=== PATIENT | male | born 1980 | race Caucasian/White ===

== ENCOUNTER 2025-01-04 16:34 | Emergency (ER) | payer MEDICAID, SELFPAY ==
[2025-01-04 16:43] VITALS: BP 163/104; BP 173/104; PULSE 107; RESP 18; TEMP 37.2; O2SAT 100
[2025-01-04 18:27] LABS: Basophils # (Auto) 0.0 Thou/mm3 (0.0-0.2); Basophils % (Auto) 0 % (0-2.5); Eosinophils # (Auto) 0.0 Thou/mm3 (0.0-0.5); Eosinophils % (Auto) 0 % (0-10); Hematocrit 46.0 % (41.0-53.0); Hemoglobin 16.0 g/dL (13.5-16.0); Immature Granulocytes Auto 0.04 Thou/mm3 (0.00-0.00); Lymphocytes # (Auto) 1.3 Thou/mm3 (1.0-4.8); Lymphocytes % (Auto) 10 % (10-50); Mean Corpuscular HGB Conc 34.8 g/dl (31.0-37.0); Mean Corpuscular Hemoglobin 29.6 pg (25.0-35.0); Mean Corpuscular Volume 85 fL (80-100); Monocytes # (Auto) 0.6 Thou/mm3 (0.0-0.8); Monocytes % (Auto) 5 % (0-12); Neutrophils # (Auto) 10.3 Thou/mm3 (1.8-7.7); Neutrophils % (Auto) 84 % (37-80); Nucleated Red Blood Cell # 0.00 Thou/mm3 (0.00-0.00); Nucleated Red Blood Cell % 0 /100 WBC (0); Platelet Count 328 Thou/mm3 (140-440); RDW Standard Deviation 38.3 fL (35.1-43.9); Red Blood Count 5.41 Miln/mm3 (4.50-5.90); White Blood Count 12.3 Thou/mm3 (3.8-10.6)
[2025-01-04 18:48] LABS: Alanine Aminotransferase 12 U/L (10-49); Albumin, Serum 5.2 gm/dL (3.5-5.0); Albumin/Globulin Ratio 1.6 (1.2-2.2); Alkaline Phosphatase 92 U/L (46-116); Anion Gap 14 (7-16); Aspartate Amino Transferase 19 U/L (0-34); BUN/Creatinine Ratio 9 Ratio (12-20); Bilirubin,Total 1.2 mg/dL (0.3-1.2); Blood Urea Nitrogen 8 mg/dL (9-23); Calcium 10.8 mg/dL (8.3-10.6); Calcium (Corrected) 10.8 mg/dL (8.5-10.1); Carbon Dioxide 24.4 mMol/L (20.0-31.0); Chloride 99 mMol/L (98-107); Creatinine (Component) 0.9 mg/dL (0.6-1.3); Globulin 3.2 gm/dL (2.3-3.5); Glucose 123 mg/dL (74-106); Lipase 82 U/L (12-53); Osmolality,Calculated 273 (275-295); Potassium 3.6 mMol/L (3.4-5.1); Sodium 137 mMol/L (136-145); Total Protein 8.4 gm/dL (5.7-8.2); eGFR > 60 See Note
[2025-01-04 20:10] VITALS: BP 160/107; PULSE 86; RESP 20; TEMP 37.2; O2SAT 98
--- NOTE | 2025-01-04 20:50 | PD.EDADULT ---
ED General RME/HPI General Chief complaint: General Adult/Misc Complain Stated complaint: DRUG WITHDRAWALS Time Seen by Provider: 01/04/25 17:03 Source: patient and EMS Arrival date/time: 01/04/25 16:34 Limitations: no limitations RME / HPI RME / HPI narrative: 44-year-old male who is brought in from a detox facility for opiate withdrawal. He has a history of fentanyl abuse and methamphetamine use. He last used fentanyl and meth ending yesterday. He is here to have nausea, vomiting, anxiety. He has a history of hypertension. He has no other acute complaints. Related Data Previous Rx's ?Medication ?Instructions ?Recorded buprenorphine 8 mg-naloxone 2 mg 1 film buccal Q24H #30 ea 01/04/25 sublingual film (Suboxone) Review of Systems Review of Systems Systems Reviewed: All systems reviewed, normal except as documented ED Exam General Limitations: Present no limitations General appearance: Present alert Head Head exam: Present atraumatic Eye Eye exam: Present normal appearance, PERRL and EOMI ENT ENT exam: Present normal exam, normal oropharynx and mucous membranes moist Neck Neck exam: Present normal inspection, full ROM and trachea midline Chest Chest inspection: Present normal inspection and symmetric chest wall rise Respiratory Respiratory exam: Present normal lung sounds bilaterally Cardiovascular Cardiovascular exam: Present regular rate, normal rhythm and normal heart sounds Abdominal Exam Abdominal exam: Present soft; Absent tenderness Extremities Exam Extremities exam: Present normal inspection and full ROM Back Exam Back exam: Present normal inspection and full ROM Neurological Exam Neurological exam: Present alert and oriented X3 Psychiatric Psychiatric exam: Present other (Anxious appearing) Skin Skin exam: Present warm, dry, intact and normal color Course Quality Measures none Orders Category Date Time Status CBC Stat Lab 01/04/25 18:03 Completed CMP [Comprehensive Metabolic Panel] Stat Lab 01/04/25 18:03 Completed Lipase Stat Lab 01/04/25 18:03 Completed UA, C/S IF [Urinalysis, C/S if Indicated] Stat Lab 01/04/25 22:00 Completed Diazepam [Valium] Med 01/04/25 17:06 Pending 5 mg PO X1 ONE Vital Signs Vital signs: Vital Signs Temperature 98.9 F 01/04/25 16:43 Pulse Rate 107 H 01/04/25 16:43 Respiratory Rate 18 01/04/25 16:43 Blood Pressure 163/104 H 01/04/25 16:43 Pulse Oximetry (%) 100 01/04/25 16:43 Oxygen Delivery Method Room Air 01/04/25 16:43 Discharge Plan Plan Patient Disposition: HOME (Self Care) Patient condition on transfer: Stable Prescriptions/Referrals Prescriptions/Med Rec: New buprenorphine-naloxone [Suboxone] 8-2 mg film 1 film buccal Q24H Qty: 30 0RF Referrals: No Primary/Family,Physician [Primary Care Provider] - In 1 week Problem List Clinical Impression: Opiate withdrawal Patient/Caregiver Discharge Instructions Education Materials: ED Opioid Withdrawal Additional Instructions: - You may return to your treatment center. - Use the provided medication to assist with your symptoms. - Return here as needed for any worsening or emergent changes. Print Language: Gabonese Stand Alone Forms: [employer]V Wireless Info., Patient Portal Info Letter MDM Narrative MDM hospital course: 44-year-old male who is brought in today for opiate withdrawals. He is currently in the treatment center. He states he has a 2 to 3-year history of fentanyl and methamphetamine abuse. He last used 2 to 3 days ago. He came in today with anxiety, nausea, vomiting. He was given a dose of Valium here. His vital signs remained stable. His CBC, metabolic panel were unremarkable. We did not obtain a urinalysis from him today. Patient be discharged with a prescription of Suboxone which he agrees to use. He will return to his treatment center tonight. He is invited to return as needed for any worsening emergent changes. Clinical Information Provided by patient and EMS Medical Records Reviewed EMS Meds/Rx Considered, not Ordered None Labs/Rad/Tests considered, not Ordered None Chronic Illness/Social Conditions which may negatively complicate care or outcome(s)-explain: Mental health and ETOH/drugs/substance abuse EKG EKG not done Lab Interpretation Labs: interpreted by me (No leukocytosis or anemia. No metabolic derangement) Imaging Imaging interpretation: none Medication Administration(s) Medication Administration History Diazepam (Diazepam 5 Mg Tablet) 5 mg PO X1 ONE Stop: 01/04/25 17:07 See above Diagnosis Differential diagnosis: Opiate addiction and withdrawals Dispositon Disposition: Discharge Home
[2025-01-04 22:09] LABS: Collection Type, Urine Voided
[2025-01-04 22:24] LABS: Bilirubin,Urine Negative (Negative); Blood,Urine 2+ (Negative); Clarity,Urine Clear (Clear/Hazy); Color,Urine Yellow (Lt Yel-Yel); Culture Indicated,Urine Not Indicated; Glucose, Urine Negative (Negative); Ketones,Urine 4+ (Negative); Leukocyte Esterase,Urine Negative (Negative); Nitrite,Urine Negative (Negative); PH,Urine 7.0 (5.0-7.0); Protein,Urine Trace (Neg - Trace); RBC,Urine 52 /hpf (0-3); Specific Gravity,Urine 1.031 (1.001-1.035); Squamous Epithelial Cell,Urine 1 /hpf (0-5); Urobilinogen,Urine 2.0 mg/dL (0.0-1.0); WBC,Urine 4 /hpf (0-5)
[2025-01-04 23:00] VITALS: BP 155/95; PULSE 83; RESP 18; TEMP 36.8; O2SAT 98
== END 2025-01-04 23:00 | disposition home or self-care (01) ==
PROVIDERS: Physician Assistant Medical; Emergency Provider Emergency Medicine
DX: F11.23 Opioid dependence with withdrawal (principal)
CPT/HCPCS: 36415; 80053; 81001; 83690; 85025; 99283

== ENCOUNTER 2025-01-07 16:49 | Emergency (ER) | payer MEDICAID, SELFPAY ==
[2025-01-07 16:53] VITALS: BP 142/86; PULSE 100; RESP 18; TEMP 36.7; O2SAT 98
[2025-01-07 16:54] VITALS: BMI 31.5
--- NOTE | 2025-01-07 17:20 | EDNOTE_ITS ---
ED Psych RME/HPI General Chief Complaint: Psychiatric Symptoms Stated Complaint: MENTAL EVALUATION Time Seen by Provider: 01/07/25 17:15 Arrival date/time: 01/07/25 16:49 RME / HPI RME / HPI Narrative: 44-year-old male patient, homeless, with significant history of fentanyl and methamphetamine abuse, has been clean for the last 5 days, was just recently released from [facility] half-way, this morning, was brought in by EMS for suicidal ideation. Patient told me that he is planning to kill himself by jumping off the overpass and get run over by a distal truck. Patient denies any homicidal ideation. Patient came in voluntarily. Patient is cooperative and pleasant not violent. He is not taking any psych medication. Related Data Previous Rx's ?Medication ?Instructions ?Recorded buprenorphine 8 mg-naloxone 2 mg 1 film buccal Q24H #3 0 ea 01/04/25 sublingual film (Suboxone) Allergies Allergy/AdvReac Type Severity Reaction Status Date / Time No Known Allergies Allergy Verified 01/07/25 17:47 Review of Systems Review of Systems Narrative Review of Systems: Review of system reviewed and within normal limits except mentioned in HPI ED Exam Narrative Physical exam: VITAL SIGNS: Reviewed. GENERAL APPEARANCE: Alert and interactive, follows commands, no acute distress, HEAD AND FACE: Non-traumatic. ENT: PERRL, pink conjunctivitis, eyelid no trauma, Mucous membrane moist. NECK: Supple, nontender, no nuchal rigidity. CHEST: No tenderness, no crepitus, no paradoxical movement, no retractions. LUNGS: Clear, well ventilated, symmetric, no rales, no wheezing, no ronchi, no stridor, good breath sounds bilaterally. HEART: Regular rate, regular rhythm, no murmur, no gallops. ABDOMEN: Soft, positive bowel sounds, nondistended, no guarding, nontender, no rebound, no masses, RECTAL: Deferred. GENITAL: Deferred. NEUROLOGICAL: Gross motor function intact sensory function intact, Appropriate for age. MUSCULOSKELETAL: low back nontender, full range of motion. EXTREMITIES: Nontender, full range of motion. SKIN: Color pink, dry, no rash, no lacerations, no abrasions, no contusions. LYMPHATICS: Deferred. Course Quality Measures none Orders Category Date Time Status Consult [facility] [address] 01/07/25 17:21 Completed Alcohol, Blood Medical Stat Lab 01/07/25 17:40 Completed Basic Metabolic Panel Stat Lab 01/07/25 17:40 Completed CBC Stat Lab 01/07/25 17:40 Completed Drug Screen,Urine Stat Lab 01/07/25 19:00 Completed Urinalysis Stat Lab 01/07/25 19:01 Completed Referral [facility] NOW 01/07/25 17:21 Active Vital Signs Vital signs: Vital Signs Temperature 98.1 F 01/07/25 16:53 Pulse Rate 100 01/07/25 16:53 Respiratory Rate 18 01/07/25 16:53 Blood Pressure 142/86 H 01/07/25 16:53 Pulse Oximetry (%) 98 01/07/25 16:53 Oxygen Delivery Method Room Air 01/07/25 16:53 Psych MDM Narrative MDM Narrative:: 44-year-old male patient, homeless, with significant history of fentanyl and methamphetamine abuse, has been clean for the last 5 days, was just recently released from [facility] half-way, this morning, was brought in by EMS for suicidal ideation. Patient told me that he is planning to kill himself by jumping off the overpass and get run over by a diesel truck. Patient denies any homicidal ideation. Patient came in voluntarily. Patient is cooperative and pleasant not violent. He is not taking any psych medication. CBC showed slight leukocytosis of 13.6 potassium of 3.2 slightly hypokalemia, patient received potassium replacement 40 mEq p.o. x 1 urinalysis positive for fentanyl and marijuana. Patient is medically cleared for crisis intervention. Care transferred to Dr Myers at 11 PM for final disposition Patient data External records reviewed:: None Clinical information provided by:: patient Social determinants that could affect healthcare access:: none Patient has the following chronic illnesses:: Homelessness, polydrug abuse How is presenting disease/condition affected by chronic disease/condition?: exacerbated by Evaluation data The following diagnostics were reviewed and interpreted by me:: lab results Lab and/or radiology exams considered but not ordered:: None Interpretation Summary: See results in MDM Medications / Prescriptions Medications or Prescriptions considered but not ordered:: None Medication administrations:: Potassium replacement Consultations Consultation(s) initiated? (list below): No Diagnosis Psych Differential Diagnosis: acute psychosis, suicidal ideation and drug- induced psychotic disorder Most likely diagnosis given after review of the tests above:: Suicidal ideation, polydrug abuse Admission Indicated Admission indicated?: not indicated Admission Request Was there a request for admission?: No Disposition Plan Disposition Plan: other (specify) Discharge Plan Prescriptions/Referrals Prescriptions/Med Rec: No Action buprenorphine-naloxone [Suboxone] 8-2 mg film 1 film buccal Q24H Qty: 30 0RF Referrals: No Primary/Family,Physician [Primary Care Provider] - In 1 week Problem List Clinical Impression: Suicidal ideation Patient/Caregiver Discharge Instructions Print Language: Scottish
[2025-01-07 17:23] VITALS: BMI 31.5
--- NOTE | 2025-01-07 17:35 | PC.NURSE ---
PATIENT ARRIVED ED VIA EMS WITH SUICIDAL IDEATION. PATIENT ALERT AND ORIENTED TO TIME AND PLACE. EMS REPORTS PATIENT WAS PICKED UP FROM [facility] AFTER BEING RELEASED. UPON ARRIVAL PATIENT WITH THOUGHTS OF SUICIDAL IDEATION. PATIENT WITH CLEAR PLAN TO JUMP [place] [address] PATIENT STATES HE HAS HAD FREQUENT THOUGHTS OF SUICIDE OVER THE PAST MONTH. PATIENT STATES HE DOES HAVE A DAUGHTER AND WANTS TO NOT FOR HER. PATIENT IS CALM AND RESTING. SITTER AT BEDSIDE.
[2025-01-07 18:01] LABS: Alcohol, Blood Medical < 10.0 mg/dL (0-10.0); Anion Gap 11 (7-16); BUN/Creatinine Ratio 13 Ratio (12-20); Blood Urea Nitrogen 13 mg/dL (9-23); Calcium 9.1 mg/dL (8.3-10.6); Carbon Dioxide 24.8 mMol/L (20.0-31.0); Chloride 106 mMol/L (98-107); Creatinine (Component) 1.0 mg/dL (0.6-1.3); Estimated Creatinine Clearance 111.6 mL/min (>60); Glucose 111 mg/dL (74-106); Osmolality,Calculated 284 (275-295); Potassium 3.2 mMol/L (3.4-5.1); Sodium 142 mMol/L (136-145); eGFR > 60 See Note
[2025-01-07 18:06] LABS: Basophils # (Auto) 0.1 Thou/mm3 (0.0-0.2); Basophils % (Auto) 0 % (0-2.5); Eosinophils # (Auto) 0.1 Thou/mm3 (0.0-0.5); Eosinophils % (Auto) 0 % (0-10); Hematocrit 44.6 % (41.0-53.0); Hemoglobin 15.9 g/dL (13.5-16.0); Immature Granulocytes Auto 0.10 Thou/mm3 (0.00-0.00); Lymphocytes # (Auto) 1.9 Thou/mm3 (1.0-4.8); Lymphocytes % (Auto) 14 % (10-50); Mean Corpuscular HGB Conc 35.7 g/dl (31.0-37.0); Mean Corpuscular Hemoglobin 29.7 pg (25.0-35.0); Mean Corpuscular Volume 83 fL (80-100); Monocytes # (Auto) 1.8 Thou/mm3 (0.0-0.8); Monocytes % (Auto) 13 % (0-12); Neutrophils # (Auto) 9.7 Thou/mm3 (1.8-7.7); Neutrophils % (Auto) 72 % (37-80); Nucleated Red Blood Cell # 0.00 Thou/mm3 (0.00-0.00); Nucleated Red Blood Cell % 0 /100 WBC (0); Platelet Count 326 Thou/mm3 (140-440); RDW Standard Deviation 39.6 fL (35.1-43.9); Red Blood Count 5.35 Miln/mm3 (4.50-5.90); White Blood Count 13.6 Thou/mm3 (3.8-10.6)
[2025-01-07 18:16] VITALS: BP 142/98; PULSE 89; RESP 16; TEMP 36.6; O2SAT 99
[2025-01-07 19:16] LABS: Collection Type, Urine Clean Catch
[2025-01-07 19:35] LABS: Amorphous Crystals,Urine Present (Absent); Bacteria,Urine Rare; Bilirubin,Urine Negative (Negative); Blood,Urine Trace (Negative); Clarity,Urine Clear (Clear/Hazy); Color,Urine Yellow (Lt Yel-Yel); Glucose, Urine Negative (Negative); Ketones,Urine Negative (Negative); Leukocyte Esterase,Urine Negative (Negative); Nitrite,Urine Negative (Negative); PH,Urine 6.0 (5.0-7.0); Protein,Urine Trace (Neg - Trace); RBC,Urine 3 /hpf (0-3); Specific Gravity,Urine 1.028 (1.001-1.035); Squamous Epithelial Cell,Urine 1 /hpf (0-5); Urobilinogen,Urine 2.0 mg/dL (0.0-1.0); WBC,Urine 1 /hpf (0-5)
[2025-01-07 20:13] LABS: Amphetamine/Methamp Scrn,U Negative (Negative); Barbiturate Screen,Urine Negative (Negative); Benzodiazepines Screen,Urine Negative (Negative); Benzoylecgonine Screen, Ur Negative (Negative); Opiate Screen,Urine Negative (Negative)
[2025-01-07 20:14] LABS: Fentanyl Screen,Urine Positive (Negative); THC Screen,Urine Positive (Negative)
--- NOTE | 2025-01-07 23:14 | PD.EDADDENDU ---
Emergency Room Addendum Addendum Narrative: 2300: Care assumed from Jaspreet Hood NP. Past medical, surgical, social and family history reviewed. Vitals and home medications reviewed. Results and treatment plan discussed. I will assume the care of the patient at this time and will follow the patient, pending crisis evaluation. Please refer to the emergency department record for history and examination from initial visit. Patient was recently released from longterm and has a history of substance abuse including methamphetamines and fentanyl. He presents to the ED for reported SI with active plan. At this time, patient is medically clear and is currently pending crisis intervention in the morning. Diagnoses include SI and substance abuse. 0600: Care signed out to Dr. Garcia (emergency physician). Past medical, surgical, social and family history reviewed. Vitals and home medications reviewed. Results and treatment plan discussed. They will assume the care of the patient at this time and will follow the patient, pending crisis evaluation.
[2025-01-08] VITALS: BP 135/97; PULSE 88; RESP 18; TEMP 36.9; O2SAT 97
[2025-01-08 04:00] VITALS: BP 133/89; PULSE 78; RESP 16; TEMP 36.8; O2SAT 98
--- NOTE | 2025-01-08 06:24 | EDNOTE_ITS ---
Emergency Room Addendum Addendum Narrative: 0600: Care assumed from Dr. Santoyo, the previous shift emergency physician. Past medical, surgical, social and family history reviewed. Vitals and home medications reviewed. I will assume the care of the patient at this time, pending crisis evaluation. Patient was already medically cleared. Please refer to the emergency department record for history and examination from initial visit.? The patient was placed in ED observation care at 01/08/2025 at 0600 hours. The patient was placed in ED observation care pending mental health evaluation. Then, [facility] placed her on 5150 hold and now on observation care because of undifferentiated decompensated behavioral health evaluation, no behavioral health bed available. The patients past medical history, social history, and family history were reviewed. The plan of care will include serial examinations. While in ED observation the patient will have access to water, food, and personal hygiene. If the patient takes home medication(s), they will be continued in ED observation. Physical exam by me shows patient under no acute distress at this time. 0843: [facility] placed the patient on a 5150 hold, pending placement. 0956: Patient has been accepted to [facility]. [address] Bah. ETA is 1115 hours. 1045: EMS here to pick the patient and transport to [facility]. ED observation care ended at 01/08/2025 at 1045 hours.
[2025-01-08 07:51] VITALS: BP 131/84; PULSE 93; RESP 18; TEMP 36.6; O2SAT 98
--- NOTE | 2025-01-08 08:02 | PC.CC ---
Patient is a 44 year-old male who presents to the hospital for suicidal ideation with plan and intention. Patient was placed on a 1799 on 01/08/2025. Bacilio made oiet-dd-hiss contact with patient to complete assessment. ASW introduced self, role, and reason for assessment. ASW disclosed limits of confidentiality as well. Patient appeared alert and oriented to self, place, and situation. Patient made appropriate eye contact with this remote mortgage underwriter. Patients mood appeared to be depressed with a flat affect, patient had good insight and judgement. No signs of delusions, paranoid or V/h. Patient reports he has been feeling suicidal but does not know the cause. Patient stated, ?I don?t want to live anymore, I am not happy, I feel like .? Patient reports his plan to end his life would be to jump off a [place] [address]. Patient stated, ?I will make my way to the overpass from [place].? Patient reports he has been placed on a 5150-hold in the past but has never had a suicide attempt. Patient reports he does not follow up with outpatient mental health and is not currently connected. Patient disclosed he has a diagnosis of Major Depressive Disorder and Generalized Anxiety. At the time of encounter patient continues to express suicidal ideation. Patient denied homicidal ideations, visual and auditory hallucinations. Patient?s [place] Screening was High-Risk. Patient reports to being a Fentanyl user. Patient?s toxicology screening was positive for Marijuana and Fentanyl. Patient reports he is able to ambulate independently and complete his own ADLs. Upon clinical consultation with [facility], Lakseha Ayers patient will be placed on a 5150-hold for Danger to Others. Patient?s 1799 will be credited. ASW provided update discharge plan to [facility] facility to Dr. Watts, polisher brass Melissa, and bedside ISABEL Arias. ASW provided 5150-Hold advisement to patient and provided a Patient?s Right Handbook. ASW to send referral packet via [employer].
--- NOTE | 2025-01-08 09:04 | PC.CC ---
Patient was accepted to [facility] by Dr. Bah. ASW provided accepting information to patient. Dr. Hollins, surgical supplies sterilizer Melissa, and bedside RN Hugo were made aware of accepting information and updated discharge plan. ASW to arrange transportation.
[2025-01-08 10:01] VITALS: BP 132/75; PULSE 103; RESP 19; TEMP 36.7; O2SAT 98
--- NOTE | 2025-01-08 10:54 | PC.NURSE ---
ATTEMPTED TO CALL FACILITY FOR REPORT, NO ANSWER AND NO VM RECORDER TO LEAVE MESSAGE WILL ATTEMPT AGAIN LATER.
--- NOTE | 2025-01-08 12:07 | PC.NURSE ---
ATTEMPTED TO CALL FACILITY FOR HANDOFF NO ANSWER
== END 2025-01-08 10:00 ==
PROVIDERS: Nurse Practitioner Family; Emergency Provider Emergency Medicine
DX: R45.851 Suicidal ideations (principal); Z59.00 Homelessness unspecified
CPT/HCPCS: 36415; 80048; 80307; 80320; 81001; 85025; 96127; 99284; G0480